=== PATIENT | female | born 1955 | race Caucasian/White ===

== ENCOUNTER 2018-04-29 06:30 | Day surgery (SDC) | payer OTHER ==
--- NOTE | 2018-04-29 08:00 | CP.SDSHP ---
Same Day Surgery H & P - History Proposed Procedure: colonoscopy Pre-Op Diagnosis: rectal bleeding - Allergies Allergies: Allergies No Known Allergies Allergy (Verified 04/29/18 06:48) - Physical Exam General Appearance: NAD Vital Signs: Vital Signs 04/29/18 06:51 Temperature 97.6 F Pulse Rate 52 L Respiratory 19 Rate Blood Pressure 134/82 O2 Sat by Pulse 99 Oximetry Mental Status: Alert & Oriented x3 Neuro: WNL Heart: WNL Lungs: WNL GI: WNL - {Optional Preform as Required} Abdomen: WNL - Impression Pt. Evaluated Today:Candidate for Anesthesia & Procedure: Yes - Date & Time Date: 04/29/18 Time: 08:00 Short Stay Discharge - Short Stay Discharge Admitting Diagnosis/Reason for Visit: HEMORRHAGE OF ANUS AND RECTUM Disposition: HOME/ ROUTINE
[2018-04-29] MEDS ORDERED: Lidocaine Hydrochloride 5 ML INJ ONE (08:19)
[2018-04-29] MEDS ORDERED: Propofol 10 mg/ml Inj (20 ML) ONE (08:19)
[2018-04-29 09:07] VITALS: TEMP 97; O2SAT 100
[2018-04-29 13:58] VITALS: BP 137/84; PULSE 60; RESP 21
== END 2018-04-29 10:15 | disposition home or self-care (01) ==
LOC: C.ENDO 06:30
PROVIDERS: ATTEND Internal Medicine Gastroenterology
DX: K62.5 Hemorrhage of anus and rectum (principal); K64.1 Second degree hemorrhoids; K63.5 Polyp of colon; Q43.8 Other specified congenital malformations of intestine
CPT/HCPCS: 45381; 45385; 88305; J2704